=== PATIENT | female | born 1975 | race Caucasian/White ===

== ENCOUNTER 2022-10-20 09:03 | Outpatient (CLI) | payer OTHER, SELFPAY ==
[2022-10-20 10:12] LABS: Basophils Percent Auto 0.5 % (0.2-1.2); Eosinophils Percent Auto 0.5 % (0-4.4); Hematocrit 46.3 % (37.0-47.0); Hemoglobin 15.2 g/dL (12.0-15.0); Immature Granulocyte Absolute 0.04 K/mm3 (0.00-0.031); Immature Granulocyte Percent A 0.5 % (0-0.5); Lymphocytes Absolute Auto 1.84 K/mm3 (0.9-3.2); Lymphocytes Percent Auto 23.1 % (18.3-44.2); Mean Corpuscular HGB Conc 32.8 g/dl (32-36); Mean Corpuscular Hemoglobin 28.5 pg (26-34); Mean Corpuscular Volume 86.9 fl (80-100); Mean Platelet Volume 9.9 fl (7.4-10.4); Monocytes Absolute Auto 0.4 K/mm3 (0.1-0.6); Monocytes Percent Auto 5.1 % (2.6-8.5); Neutrophils Absolute Auto 5.6 K/mm3 (1.3-6.7); Neutrophils Percent Auto 70.3 % (45.5-73.1); Platelet Count Result 251 k/mm3 (150-375); Red Blood Count 5.33 M/mm3 (4.2-5.4); Red Cell Distribution Width 12.9 % (11.5-14.5)
[2022-10-20 12:54] LABS: LDL Cholesterol Direct 213 mg/dL
[2022-10-20 13:00] LABS: Alanine Aminotransferase 28 U/L (6-35); Albumin Level 4.9 g/dL (3.5-5.1); Alkaline Phosphatase 88 U/L (38-126); Anion Gap 9 mmol/L (8-16); Aspartate Amino Transferase 30 U/L (14-36); Bilirubin,Total 0.6 mg/dL (0.2-1.3); Blood Urea Nitrogen 13 mg/dL (7-17); Calcium 9.2 mg/dL (8.4-10.2); Carbon Dioxide 27 mmol/L (22-30); Chloride 104 mmol/L (98-107); Estimated Glomerular Filt Rate > 60; Glucose 106 mg/dL (65-110); HDL Direct 51 mg/dL; Potassium 4.1 mmol/L (3.4-5.0); Sodium 140 mmol/L (137-145); Triglycerides 301 mg/dL (<150)
[2022-10-20 13:41] LABS: Cholesterol 345 mg/dL (0-200)
== END 2022-10-20 09:04 | disposition home or self-care (01) ==
LOC: ANHLAB 09:05
PROVIDERS: PCP Registered Nurse; Visit Provider Registered Nurse
DX: Z00.00 Encounter for general adult medical examination without abnormal findings (principal)
CPT/HCPCS: 36415; 80053; 80061; 84443; 85025

== ENCOUNTER 2024-01-17 06:20 | Day surgery (SDC) | payer OTHER, SELFPAY ==
[2023-12-09 08:29] VITALS: BMI 31.8
[2024-01-02 10:43] VITALS: BMI 33.0
--- NOTE | 2024-01-10 12:48 | PM.HPGS ---
History of Present Illness History of Present Illness Consent: Risks, benefits, and alternatives have been discussed and questions answered. Patient agrees to proceed with procedure. Chief complaint: Neoplasm screening Narrative: Sarah Khan is a 48 year old female who is referred for colon cancer screening. Review of Systems Review of Systems: All systems reviewed & are unremarkable except as noted in HPI and below PMFSH Past Medical History Medical History Abnormal Pap smear of cervix 07/09/20, VIKASH Vaginal delivery x2 Surgical History Surgical History History of carpal tunnel surgery x2, both hands History of colposcopy 08/26/20 Social History Social History Smoking status: Never smoker Alcohol intake: never Substance use: never Substance use type: does not use Lack of Transportation: No Lack of Food: Never True Current Housing: I Have Housing Concerned About Future Housing: No Difficulty Paying Gas/Electric Bills: No Difficulty Paying for Meds: No Currently Unemployed: No Education: High School Diploma/GED Difficulty w/ Childcare or Family Care: No Living arrangements: with family Occupation/Education: occupation Gender identity (if verbalized by the patient): Female Sexual Orientation (if Verbalized by the Patient): Straight or Heterosexual Spiritual care concerns: No Agree to blood products: Yes Meds Home Medications and Allergies Home Medications Medication Instructions Recorded Confirmed Type aspirin 81 mg tablet,delayed 81 mg PO DAILY 12/01/23 01/17/24 History release norethindrone (contraceptive) 0.35 0.35 mg PO DAILY #84 tabs 12/01/23 01/17/24 Rx mg tablet ([facility]rence) Allergies Allergy/AdvReac Type Severity Reaction Status Date / Time No Known Allergies Allergy Verified 01/17/24 06:50 Exam Resp: Auscultation: clear to auscultation bilaterally Cardio: Rate: regular rate Rhythm: regular rhythm GI: GI Palp: Yes Soft to palpation and No Tenderness to palpation present (GI) Assessment and Plan Assessment and plan (1) Colon cancer screening: Code(s): Z12.11 - Encounter for screening for malignant neoplasm of colon Status: Acute Assessment and Plan: Colonoscopy with possible biopsy or polypectomy or cautery or injection of substances.
--- NOTE | 2024-01-17 06:39 | WPDANESEPPF ---
Anes - Initial Pre Proc Eval Procedure: Operation Date: 01/17/24 08:00 Proposed Procedures p Screening Colonoscopy - Jono Pruitt MD Date/Time: 01/17/24 06:39 Surgeon: Jono Pruitt MD Pre Op Diagnosis: Neoplasm screening Patient Data Age: 48 Gender: F Height: 1.57 m Weight: 82 kg Allergies Allergy/AdvReac Type Severity Reaction Status Date / Time No Known Allergies Allergy Verified 01/17/24 06:50 Home Medications Medication Instructions Recorded Confirmed Type aspirin 81 mg tablet,delayed 81 mg PO DAILY 12/01/23 01/17/24 History release norethindrone (contraceptive) 0.35 0.35 mg PO DAILY #84 tabs 12/01/23 01/17/24 Rx mg tablet (Laurence) Patient hx anesthesia problems: none Family hx anesthesia problems: none Results Review: All pre-operative results and documents have been reviewed as part of the pre-operative evaluation. [facility] Past Medical History Medical History Abnormal Pap smear of cervix 07/09/20, VIKASH Vaginal delivery x2 Surgical History Surgical History History of carpal tunnel surgery x2, both hands History of colposcopy 08/26/20 Social History Social History Smoking status: Never smoker Alcohol intake: never Substance use: never Substance use type: does not use Lack of Transportation: No Lack of Food: Never True Current Housing: I Have Housing Concerned About Future Housing: No Difficulty Paying Gas/Electric Bills: No Difficulty Paying for Meds: No Currently Unemployed: No Education: High School Diploma/GED Difficulty w/ Childcare or Family Care: No Living arrangements: with family Occupation/Education: occupation Gender identity (if verbalized by the patient): Female Sexual Orientation (if Verbalized by the Patient): Straight or Heterosexual Spiritual care concerns: No Agree to blood products: Yes Anes - Eval Final PreProcedure Day of Procedure 01/17/24 06:39 Patient weight: obese Heart: regular rate and rhythm Lungs: clear to auscultation Airway: Mallampati scale class II Neurological: alert and oriented Last oral intake: >/= 8 hours ASA classification: II Emergent: no Anesthetic plan: proceed Anesthesia type and monitoring: general GIVS and standard monitoring Results Review: All pre-operative results and documents have been reviewed as part of the pre-operative evaluation. Informed Consent: The patient's anesthetic plan and its attendant risks and benefits were discussed with the patient/family/POA. Questions were solicited and answers provided to the satisfaction of the patient/family/POA.
[2024-01-17 06:51] VITALS: BP 139/101; PULSE 80; RESP 15; TEMP 36.8; O2SAT 100
[2024-01-17] MEDS: LACTATED RINGERS 1,000 ML 150 ML IV CONT (07:02)
[2024-01-17] MEDS: FAMOTIDINE 20 MG/2 ML VIAL IV PUSH (07:26)
[2024-01-17] MEDS: ONDANSETRON INJ 4 MG/2 ML VIAL IV PUSH (07:26)
[2024-01-17 08:02] VITALS: BP 117/82; PULSE 66; RESP 18; O2SAT 96
[2024-01-17 08:12] VITALS: BP 115/81; PULSE 78; RESP 16; O2SAT 98
[2024-01-17 08:24] VITALS: BP 112/95; PULSE 70; RESP 15; O2SAT 98
--- NOTE | 2024-01-17 11:10 | WPDANESPN ---
Anes - Prog Note Post-Op Date/Time: 01/17/24 11:10 Cardiovascular status: normal Respiratory status: normal Airway patency: baseline Mental status: baseline Post-Op hydration status: normal Vital Signs: Last Vital Signs Temp 36.8 C 01/17/24 06:51 Pulse 70 01/17/24 08:24 Resp 15 01/17/24 08:24 BP 112/95 H 01/17/24 08:24 Pulse Ox 98 01/17/24 08:24 O2 Del Method Room Air 01/17/24 08:24 Pain Score (VAS): 0 I/O: Intake & Output 01/16/24 01/17/24 01/17/24 23:59 07:59 15:59 Intake Total 200 Balance 200 Post-procedural complaints: none Patient Feedback: Patient satisfied with anesthetic care. Other Findings: Patient vital signs back to baseline. Patient denies nausea and vomiting. Patient's pain under control. Patient OK for discharge.
== END 2024-01-17 08:35 | disposition home or self-care (01) ==
PROVIDERS: PCP Family Medicine; Visit Provider Internal Medicine Gastroenterology
PROC: 0DJD8ZZ Inspection of Lower Intestinal Tract, Via Natural or Artificial Opening Endoscopic (ICD-10-PCS; CPT 45378; principal; 2024-01-17 08:00)
DX: Z12.11 Encounter for screening for malignant neoplasm of colon (principal)
CPT/HCPCS: 45378